=== PATIENT | male | born 1970 | race Two or more races ===

== ENCOUNTER 2023-08-12 23:17 | Emergency (ER) | payer OTHER ==
[2023-08-13] MEDS ORDERED: Sodium Chloride 0.9% 10 ML Syringe FLUSH PRN (01:17)
[2023-08-13] MEDS ORDERED: Ondansetron 4 MG/2 ML SDV IVPUSH ONE (01:17)
[2023-08-13] MEDS ORDERED: Ketorolac 30 MG/ML SDV IVPUSH ONE (01:17)
[2023-08-13] MEDS ORDERED: Sodium Chloride 0.9% 1,000 ML IV ONE (01:17)
[2023-08-13 01:41] LABS: BILIRUBIN,URINE NEGATIVE (NEGATIVE); GLUCOSE,URINE NORMAL (NORMAL); KETONES,URINE NEGATIVE (NEGATIVE); LEUKOCYTE ESTERASE,URINE NEGATIVE (NEGATIVE); NITRITE,URINE NEGATIVE (NEGATIVE); OCCULT BLOOD,URINE NEGATIVE (NEGATIVE); PROTEIN,URINE NEGATIVE (NEGATIVE); UROBILINOGEN,URINE NORMAL (NEGATIVE)
[2023-08-13 01:45] LABS: BLOOD UREA NITROGEN,BUN 11 mg/dL (7-18); CALCIUM 9.2 mg/dL (8.6-10.2); CARBON DIOXIDE,CO2 25 mmol/L (21-32); CHLORIDE,CL 102 mmol/L (100-110); EST CRCL DRUG DOSING (CG) 85.43 mL/min; ESTIMATED GFR 90 mL/min (>60); GLUCOSE RANDOM 106 mg/dL (80-116); POTASSIUM,K 3.7 mmol/L (3.5-5.3); SODIUM,NA 136 mmol/L (135-145)
[2023-08-13 01:47] LABS: APPEARANCE,URINE CLEAR (CLEAR); BACTERIA,URINE RARE (NS); COLOR,URINE YELLOW (YELLOW); RBC,URINE 0-5 (0-5); SQUAMOUS EPITHELIAL CELLS,UR NOT SEEN (NS,R,O); WBC,URINE NOT SEEN (0-5)
[2023-08-13 01:54] LABS: HEMATOCRIT 41.6 % (38.3-50.1); HEMOGLOBIN 14.3 g/dL (12.9-17.7); MEAN CORPUSCULAR HEMOGLOBIN 27.7 pg (27.0-33.3); MEAN CORPUSCULAR HGB CONC 34.4 g/dL (28.7-35.3); MEAN CORPUSCULAR VOLUME 80.5 fL (80.8-98.7); MEAN PLATELET VOLUME 10.7 fL (6.7-11.0); PLATELET COUNT,PLT 223 x10(3)uL (117-477); RED BLOOD CELL COUNT 5.17 x10(6)uL (3.90-5.90); RED CELL DISTRIBUTION WIDTH 14.3 % (12.4-15.0); WHITE BLOOD CELL COUNT,WBC 14.6 x10-3/uL (3.2-10.1)
[2023-08-13 01:59] LABS: C-REACTIVE PROTEIN 3.31 mg/dL (<0.33)
[2023-08-13 02:00] LABS: A/G RATIO 1.1; ALANINE AMINOTRANSFERASE,ALT 32 U/L (12-36); ALBUMIN 4.1 g/dL (3.5-5.2); ALKALINE PHOSPHATASE 53 IU/L (56-112); ASPARTATE AMNIOTRANSFERASE,AST 18 IU/L (5-25); BILIRUBIN TOTAL 0.5 mg/dL (0.1-1.3); MAGNESIUM 1.9 mg/dL (1.8-2.5); PROTEIN TOTAL,TP 7.9 g/dL (6.0-8.0)
[2023-08-13 02:09] LABS: BAND PERCENT MAN 1 % (0-6); LYMPHOCYTES PERCENT MAN 13 % (13-37); SEG NEUTROPHILS PERCENT MAN 74 % (46-82)
[2023-08-13 02:10] LABS: EOSINOPHILS PERCENT MAN 3 % (0-5); MONOCYTES PERCENT MAN 9 % (4-12)
[2023-08-13] MEDS ORDERED: cefTRIAXone 2 GM Vial IVPUSH ONE (03:00)
== END 2023-08-13 03:47 | disposition home or self-care (01) ==
LOC: FB.ED 23:17
DX: K57.32 Diverticulitis of large intestine without perforation or abscess without bleeding (principal)
CPT/HCPCS: 36415; 74176; 80053; 81001; 83690; 83735; 85025; 86140; 96361; 96374; 96375; 99284; 99284-25; J0696; J1885; J2405; J7030

== ENCOUNTER 2025-03-26 19:36 | Emergency (ER) | payer OTHER ==
[2025-03-26] MEDS: methylPREDNISolone Sodium Succinate 125 MG/2 ML SDV IM ONE (20:54)
[2025-03-26] MEDS: Albuterol/Ipratropium 3.0-0.5 MG/3 ML Neb Soln NEB ONE (20:55)
== END 2025-03-26 21:25 | disposition home or self-care (01) ==
LOC: FB.ED 19:36
DX: J45.901 Unspecified asthma with (acute) exacerbation (principal)
CPT/HCPCS: 94640; 96372; 99284; J2919; J7620; A9270-GY